=== PATIENT | female | born 2000 | race Two or more races ===

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

== ENCOUNTER → 2021-02-08 14:10 | Outpatient (CLI) | payer BC, SELFPAY ==
[2021-02-08 14:47] LABS: Amphetamine/Metha Screen,Urine Positive ng/ml (<1000)
[2021-02-08 14:48] LABS: Benzodiazepines Screen,Urine Negative ng/ml (<200)
[2021-02-08 14:49] LABS: Cannabinoid Screen,Urine Negative ng/ml (<50)
[2021-02-08 14:50] LABS: Cocaine Screen,Urine Negative ng/ml (<300); Methadone Screen,Urine Negative ng/ml (<300)
[2021-02-08 14:51] LABS: Opiate Screen,Urine Negative ng/ml (<300); Phencyclidine Screen,Urine Negative ng/ml (<25)
[2021-02-08 14:59] LABS: Barbiturates Screen,Urine Negative ng/ml (<200)
== END ==
PROVIDERS: Visit Provider Physician Assistant
DX: F90.9 Attention-deficit hyperactivity disorder, unspecified type (principal)
CPT/HCPCS: 80305

== ENCOUNTER → 2021-09-27 14:35 | Outpatient (CLI) | payer BC, SELFPAY ==
[2021-09-27 14:14] LABS: Barbiturates Screen,Urine Negative ng/ml (<200)
[2021-09-27 14:15] LABS: Benzodiazepines Screen,Urine Negative ng/ml (<200)
[2021-09-27 14:16] LABS: Amphetamine/Metha Screen,Urine Negative ng/ml (<1000)
[2021-09-27 14:23] LABS: Cannabinoid Screen,Urine Negative ng/ml (<50)
[2021-09-27 14:24] LABS: Cocaine Screen,Urine Negative ng/ml (<300)
[2021-09-27 14:25] LABS: Methadone Screen,Urine Negative ng/ml (<300); Opiate Screen,Urine Negative ng/ml (<300)
[2021-09-27 14:26] LABS: Phencyclidine Screen,Urine Negative ng/ml (<25)
== END ==
PROVIDERS: PCP Physician Assistant; Visit Provider Physician Assistant
DX: F90.9 Attention-deficit hyperactivity disorder, unspecified type (principal)
CPT/HCPCS: 80305

== ENCOUNTER → 2022-05-21 13:53 | Outpatient (CLI) | payer BC, SELFPAY ==
--- NOTE | 2022-05-21 14:09 | CT_ITS ---
FINAL REPORT CLINICAL HISTORY: Abdominal pain in back on right side, radiates to front of stomach FINDINGS: Axial CT images of the abdomen and pelvis were obtained without intravenous contrast. Coronal and sagittal reformatted images were also obtained.This study was performed with techniques to keep radiation doses as low as reasonably achievable (ALARA). Individualized dose reduction techniques using automated exposure control or adjustment of mA and/or kV according to the patient''s size were employed. Abdomen: The lung bases are clear. There is no evidence of renal stone or hydronephrosis. The right kidney is enlarged and heterogeneous with surrounding fat stranding. The liver, spleen and pancreas have an unremarkable, unenhanced appearance. No mass or adenopathy is seen. No inflammatory process is identified. Pelvis: Images of the pelvis reveal no evidence of ureteral dilation or ureteral stone. No mass or adenopathy is identified. There is a small amount of pelvic free fluid which is likely physiologic or reactive. The appendix is visualized and has an unremarkable appearance. IMPRESSION: Enlarged right kidney with surrounding fat stranding most worrisome for acute right pyelonephritis. Authenticated and ERN
== END ==
LOC: RAD 13:55
PROVIDERS: PCP Physician Assistant; Visit Provider Physician Assistant
DX: R10.31 Right lower quadrant pain (principal)
CPT/HCPCS: 74176

== ENCOUNTER → 2022-05-22 13:24 | Outpatient (CLI) | payer BC, SELFPAY | PROVIDERS: PCP Physician Assistant; Visit Provider Physician Assistant | DX: R10.31 Right lower quadrant pain (principal) | CPT/HCPCS: 87086 ==

== ENCOUNTER 2022-05-22 22:34 | Inpatient (IN) | payer BC, SELFPAY ==
[2022-05-22 22:43] VITALS: BP 120/63; PULSE 144; RESP 20; TEMP 36.8; O2SAT 98; BMI 20.8
[2022-05-22 22:56] LABS: Microscopic, Urine URINE MICROSCOPIC (MICROSCOPIC)
[2022-05-22 23:00] VITALS: BP 115/76; PULSE 121; O2SAT 97
[2022-05-22 23:06] LABS: Alanine Aminotransferase 40 U/L (12-78); Albumin Level 3.8 g/dl (3.5-5.0); Alkaline Phosphatase 261 U/L (38-126); Anion Gap 12.8 mEq/L (5-15); Aspartate Amino Transferase 43 U/L (14-36); Basophils # 0.1 K/mm3 (0-0.2); Basophils % 0.4 % (0.1-2.0); Bilirubin,Total 1.6 mg/dl (0.2-1.3); Blood Urea Nitrogen 25 mg/dl (7-17); Calcium 8.7 mg/dl (8.4-10.2); Carbon Dioxide 22 mmol/L (22.0-30.0); Chloride 97 mmol/L (98-107); Creatinine Clearance Estimated 27 mL/min (50-200); Eosinophils # 0.1 K/mm3 (0.0-0.4); Eosinophils % 0.7 % (0.1-12.0); Estimated Glomerular Filt Rate 28 ml/min (>60); GFR (African American) 34 ML/MIN (>60); Globulin 3.8 g/dL (1.3-3.2); Glucose 121 mg/dl (74-100); Hematocrit 36.4 % (37.0-47.0); Hemoglobin 12.2 g/dL (12.2-16.2); Lymphocytes # 0.5 K/mm3 (0.7-4.5); Mean Corpuscular HGB Conc 33.5 g/dL (31.8-35.4); Mean Corpuscular Hemoglobin 25.4 pg (27.0-31.2); Mean Platelet Volume 8.9 fl (7.4-10.4); Monocytes # 0.1 K/mm3 (0.1-1.0); Monocytes % 1.1 % (1.7-9.3); Neutrophils # 10.3 K/mm3 (1.8-7.8); Neutrophils % 93.7 % (37.0-80.0); Platelet Count 224 K/mm3 (142-424); Red Blood Count 4.79 M/mm3 (4.20-5.40); Red Cell Distribution Width 17.3 % (11.5-17.5); Sodium 129 mmol/L (136-145); Total Protein,Serum 7.6 g/dl (6.3-8.2); White Blood Count 10.9 K/mm3 (4.8-10.8)
[2022-05-22 23:08] LABS: Potassium 2.8 mmoL/L (3.5-5.1)
--- NOTE | 2022-05-22 23:08 | PC.NURSE ---
Critical potassium level of 2.8 called by lab. notified. Orders received.
[2022-05-22 23:10] LABS: MANUAL DIFFERENTIAL MANUAL DIFFERENTIAL (MANUAL DIFF)
[2022-05-22 23:11] LABS: C-Reactive Protein 298.7 mg/L (0-4)
[2022-05-22 23:15] LABS: Appearance,Urine CLEAR (Clear); Bilirubin,Urine Negative (Negative); Blood, Urine 3+ (Negative); Color,Urine YELLOW (Yellow); Glucose,Urine (UA) Negative (Negative); Ketones,Urine Negative (Negative); Leukocyte Esterase,Urine 1+ (Negative); Nitrate,Urine Negative (Negative); Protein,Urine 3+ (Negative); Specific Gravity, Urine 1.015 (1.005-1.030); Urobilinogen,Urine 0.2 EU/dl (0.2)
[2022-05-22 23:18] LABS: Urine Pregnancy, HCG Qual. Negative (Negative)
[2022-05-22 23:24] LABS: Coronavirus 19, PCR Not Detected (NotDetected); Influenza A, PCR Not Detected (NotDetected); Influenza B, PCR Not Detected (NotDetected)
[2022-05-22 23:30] VITALS: BP 122/73; PULSE 118; O2SAT 98
[2022-05-22 23:38] LABS: Bacteria,Urine 1+ /lpf
[2022-05-22 23:40] LABS: Lymphocytes % 9 % (10-50); Monocytes % 1 % (2-9); Neutrophils % 90 % (42-76); Platelet Estimate Normal; RBC Morphology Normal; Total Cells Counted 100
[2022-05-22 23:40] LABS: Lactic Acid 0.9 mmol/L (0.7-2.1)
[2022-05-22 23:41] LABS: Erythrocyte Sedimentation Rate 93 mm/hr (0-20)
[2022-05-23] VITALS (10 sets, daily range): BP systolic 96–127; BP diastolic 53–71; PULSE 58–116; RESP 16–21; TEMP 36.6–37.2; O2SAT 91–99; BMI 21.7; BMI 21.8
--- NOTE | 2022-05-23 00:27 | HMH.ITSTN ---
GFR below 30 & high creat. Spoke to RN, verbal to cancel CT scan.
--- NOTE | 2022-05-23 00:34 | PC.NURSE ---
ER MD at bedside at this time
--- NOTE | 2022-05-23 00:39 | CT_ITS ---
PROCEDURE INFORMATION: Exam: CT Abdomen And Pelvis Without Contrast Exam date and time: 05/23/2022 12:52 AM Age: 22 years old Clinical indication: Abdominal pain; Additional info: Abd pain TECHNIQUE: Imaging protocol: Computed tomography of the abdomen and pelvis without contrast. Radiation optimization: All CT scans at this facility use at least one of these dose optimization techniques: automated exposure control; mA and/or kV adjustment per patient size (includes targeted exams where dose is matched to clinical indication); or iterative reconstruction. REPORTING DATA: Count of CT and Cardiac NM exams in prior 12 months: This patient has received [address] and 0 known cardiac nuclear medicine studies in the 12 months prior to the current study. COMPARISON: CT ABDOMEN PELVIS WO CON 05/21/2022 2:29 PM FINDINGS: Lungs: Minimal subsegmental atelectasis at both lung bases. Small calcified granulomas again noted at the medial left lung base. Liver: Normal. No mass. Gallbladder and bile ducts: Normal. No calcified stones. No ductal dilation. Pancreas: Normal. No ductal dilation. Spleen: Normal. No splenomegaly. Adrenal glands: Normal. No mass. Kidneys and ureters: Persistent enlargement of the right kidney with trace perinephric stranding. No hydronephrosis. Left kidney appears unremarkable. Stomach and bowel: Unremarkable. No obstruction. No mucosal thickening. Appendix: Normal appendix. Intraperitoneal space: Trace free fluid. No free air. Vasculature: Unremarkable. No abdominal aortic aneurysm. Lymph nodes: Unremarkable. No enlarged lymph nodes. Urinary bladder: No bladder wall thickening or other bladder abnormality. Reproductive: Unremarkable as visualized. Bones/joints: No acute osseous abnormality. Soft tissues: Unremarkable. IMPRESSION: 1. Persistent enlargement of the right kidney with trace perinephric stranding. No hydronephrosis. Findings again raise concern for possible right pyelonephritis. 2. Left kidney appears unremarkable. 3. Trace free fluid. 4. No bladder wall thickening or other bladder abnormality. 5. Minimal subsegmental atelectasis at both lung bases.
--- NOTE | 2022-05-23 00:39 | HMH.EDABDPAI ---
Discharge Plan Disposition Patient Disposition: Admitted As Inpatient Chief Complaint: Abdominal Pain Prescriptions Prescriptions: No Action mometasone [Nasonex] 50 mcg/actuation spray,non-aerosol 2 spray INTRANASAL DAILY Rx Instructions: administer into each nostril Stahist AD 25-60 mg tablet 1 tab PO BID PRN (Reason: allergy symptoms) Qty: 180 0RF ondansetron 8 mg tablet,disintegrating 8 mg PO Q12H montelukast 10 mg tablet 10 mg PO HS cefdinir 300 mg capsule 300 mg PO BID Mydayis 25 mg capsule, ER triphasic 24 hr 25 mg PO DAILY Referrals Follow up/Referrals: Alma Davis PA [Primary Care Provider] - See instructions Clinical Impressions Clinical Impression: Pyelonephritis, Severe sepsis with acute organ dysfunction, Acute hypokalemia Discharge ED Provider: Oksana (ED)Rashid Abdominal Pain HPI General Chief Complaint: Abdominal Pain Stated Complaint: ABD pain Time Seen by Provider: 05/23/22 00:05 Mode of Arrival: Ambulatory Source of Information: Patient and Medical Record Limitations: No Limitations Description of Symptoms (Recalled from ER Triage Doc. by RN): Pt arrives via private vehicle with c/o severe lower back pain since Saturday. States that she saw her pcp yesterday and had a ct scan and was diagnosed with pyelonephritis and began cefdinir, is on day 2 of cefdinir. Patient states that the pain has become more severe and is not relieved by over the counter medication. Pt states that the pain is now worse in her abdomen but does tend to radiate from her lower back to abdomen. Denies any injury History of Present Illness HPI narrative: back pain since saturday and had dx of pyelo and on omnicef and now with progressive pain and dec po intake complaint: abdominal pain Onset (ago): day(s) Consistency: constant Location: suprapubic and R flank Severity: severe Quality: sharp Associated symptoms: denies other symptoms Related Data Home Medications Medication Instructions Recorded Confirmed mometasone 50 mcg/actuation nasal 2 spray intranasal DAILY allergies 09/29/20 05/22/22 spray (Nasonex) cefdinir 300 mg capsule 300 mg PO BID kidney infection 05/22/22 05/22/22 dextroamphetamine-amphetamine ER 25 mg PO DAILY adhd 05/22/22 05/22/22 25 mg capsule,3 bead,ext release 24hr (Mydayis) montelukast 10 mg tablet 10 mg PO HS allergies 05/22/22 05/22/22 ondansetron 8 mg disintegrating 8 mg PO Q12H Nausea & vomiting 05/22/22 05/22/22 tablet Previous Rx's Medication Instructions Recorded chlorcyclizine-pseudoephedrine 25 1 tab PO BID PRN allergy symptoms 11/24/20 mg-60 mg tablet (Stahist AD) #180 tabs Allergies Allergy/AdvReac Type Severity Reaction Status Date / Time Penicillins Allergy Verified 05/21/22 13:15 [facility] Disclaimer: The information contained in this section may have been updated after the patient was seen, as this information can be updated by other users. Medical History (Updated 05/23/22 @ 01:42 by Rashid Gandhi (ED)MD) Allergic rhinitis Anxiety Attention deficit hyperactivity disorder (ADHD) Pain, abdominal, RLQ Right flank pain Social History Smoking Status: Never smoker alcohol intake: never substance use type: denies use current occupational status: other Travel in the last 8 weeks: None household members: family housing: house ROS Obtained: Yes All systems reviewed & no additional complaints except as documented Physical Exam General General appearance: alert Head Head exam: normocephalic Eye Eye exam: Present PERRL and EOMI; Absent scleral icterus ENT ENT exam: Present mucous membranes moist Neck Neck exam: Present trachea midline; Absent meningismus Respiratory Respiratory exam: Absent respiratory distress Cardiovascular Cardiovascular exam: Present regular rate Abdominal Exam Abdominal exam: Present soft and
--- NOTE | 2022-05-23 00:49 | PC.NURSE ---
patient gone to CT at this time.
--- NOTE | 2022-05-23 00:54 | PC.NURSE ---
patient back in room at this time.
--- NOTE | 2022-05-23 02:04 | EXP.HP ---
History of Present Illness *Admission Date: 05/23/22 *Reason for visit:: Back Pain, Nausea, Chills *History of present illness: Ms. Colin is a 22-year-old female with no significant past medical history who presents to [facility] with mother due to a 3-day history of back pain associated with chills, nausea and the inability to tolerate oral intake. Mother reports that she was seen by her PCP and diagnosed with Pyelonephritis by CT scan 2-days prior to presentation. At that time she was given a dose of Rocephin and given Cefdinir orally. Despite these interventions the mother reports that the patient had worsening back pain and the inability to tolerate oral intake so she brought her into the ER for further evaluation. In the ER, CT of the abdomen and pelvis showed persistent enlargement of the right kidney with trace perinephretic stranding with no hydronephrosis. On CMP Na was 129, K was 2.8, and creatinine was 2.20. Urine HCG was negative. On presentation the patient had a HR of 138, RR of 21. The patient will be admitted with initial impression: Sepsis, Pyelonephritis, Hypokalemia, SEAN and Hyponatremia. She had cultures drawn in the ER and received a Fluid bolus and iv antibiotics. The plan of care was discussed with the patient and mother at bedside. Both verbalized understanding and agreement with the plan of care. [facility] Disclaimer: The information contained in this section may have been updated after the patient was seen, as this information can be updated by other users. Medical History Allergic rhinitis Anxiety Attention deficit hyperactivity disorder (ADHD) Pain, abdominal, RLQ Right flank pain Family History (Updated 05/23/22 @ 02:34 by Jess Hernández RN) No significant family history Social History (Updated 05/23/22 @ 02:35 by Jess Hernández RN) Smoking Status: Never smoker alcohol intake: never substance use type: denies use current occupational status: student and other Travel in the last 8 weeks: None household members: family housing: house Review of Systems Review of Systems Review of systems:: pertinent systems reviewed and negative unless documented below Constitutional Constitutional: Reports anorexia, Reports body ache(s) and Reports chills Eyes Eyes: Reports system reviewed and no additional complaints, except as documented ENT Ears, Nose, Mouth, and Throat: Reports system reviewed and no additional complaints, except as documented *Cardiovascular Cardiovascular: Reports system reviewed and no additional complaints, except as documented *Respiratory Respiratory: Reports system reviewed and no additional complaints, except as documented *Gastrointestinal Gastrointestinal: Reports nausea *Genitourinary Genitourinary: Reports hematuria, Reports pelvic pain and Reports urinary hesitancy *Musculoskeletal Musculoskeletal: Reports back pain Integumentary/Breasts Skin/Breast: Reports system reviewed and no additional complaints, except as documented *Neurologic Neurologic: Reports system reviewed and no additional complaints, except as documented Psychiatric Psychiatric: Reports system reviewed and no additional complaints, except as documented Endocrine Endocrine: Reports system reviewed and no additional complaints, except as documented Hematologic/Lymphatic Hematologic/Lymphatic: Reports system reviewed and no additional complaints, except as documented Allergic/Immunologic Allergic/Immunologic: Reports system reviewed and no additional complaints, except as documented Meds Home Medications and Allergies Home Medications Medication Instructions Recorded Confirmed Type mometasone 50 mcg/actuation nasal 2 spray intranasal DAILY allergies 09/29/20 05/22/22 History spray (Nasonex) chlorcyclizine-pseudoephedrine 25 1 tab PO BID PRN allergy symptoms 11/24/20 05/22/22 Rx mg-60 mg tablet (Sta
[2022-05-23 02:26] LABS: Magnesium 3.3 mg/dl (1.6-2.3)
--- NOTE | 2022-05-23 04:47 | PC.NURSE ---
patient is a&ox4. stable on room air. has no complaints of pain. receiving iv fluids/potassium. mother at bedside.
--- NOTE | 2022-05-23 06:32 | EXP.SEPSISRE ---
[facility] Tissue Perfusion Eval Sepsis Re-Evaluation Performed: Yes Date Performed: 05/23/22 Time Performed: 06:00
[2022-05-23 07:02] LABS: Basophils % 0.1 % (0.1-2.0); Eosinophils % 0.5 % (0.1-12.0); Hematocrit 32.4 % (37.0-47.0); Lymphocytes # 0.7 K/mm3 (0.7-4.5); Lymphocytes % 10.8 % (10-50); Mean Corpuscular Hemoglobin 25.6 pg (27.0-31.2); Mean Corpuscular Volume 79.9 fl (81-99); Mean Platelet Volume 8.9 fl (7.4-10.4); Monocytes # 0.1 K/mm3 (0.1-1.0); Monocytes % 1.7 % (1.7-9.3); Neutrophils # 5.3 K/mm3 (1.8-7.8); Neutrophils % 86.9 % (37.0-80.0); Platelet Count 154 K/mm3 (142-424); Red Blood Count 4.05 M/mm3 (4.20-5.40); Red Cell Distribution Width 17.6 % (11.5-17.5); White Blood Count 6.1 K/mm3 (4.8-10.8)
[2022-05-23 07:05] LABS: MANUAL DIFFERENTIAL MANUAL DIFFERENTIAL (MANUAL DIFF)
[2022-05-23 07:08] LABS: Hemoglobin 10.4 g/dL (12.2-16.2)
[2022-05-23 07:12] LABS: Alanine Aminotransferase 26 U/L (12-78); Albumin Level 2.5 g/dl (3.5-5.0); Albumin/Globulin Ratio 0.9 (1.1-1.8); Alkaline Phosphatase 183 U/L (38-126); Anion Gap 7.5 mEq/L (5-15); Aspartate Amino Transferase 30 U/L (14-36); Bilirubin,Total 1.1 mg/dl (0.2-1.3); Blood Urea Nitrogen 20 mg/dl (7-17); Calcium 7.5 mg/dl (8.4-10.2); Carbon Dioxide 19 mmol/L (22.0-30.0); Chloride 107 mmol/L (98-107); Creatinine Clearance Estimated 34 mL/min (50-200); Estimated Glomerular Filt Rate 36 ml/min (>60); GFR (African American) 43 ML/MIN (>60); Globulin 2.9 g/dL (1.3-3.2); Glucose 116 mg/dl (74-100); Potassium 3.5 mmoL/L (3.5-5.1); Sodium 130 mmol/L (136-145); Total Protein,Serum 5.4 g/dl (6.3-8.2)
[2022-05-23 07:15] LABS: Lymphocytes % 18 % (10-50); Monocytes % 2 % (2-9); Neutrophils % 80 % (42-76); Platelet Estimate Normal; RBC Morphology Normal; Total Cells Counted 100
--- NOTE | 2022-05-23 07:20 | HMH.PHAINT1 ---
Pharmacy Intervention Comments: Medication reconciliation completed using external fill history
--- NOTE | 2022-05-23 09:31 | PC.NURSE ---
noted IV pump beeping, upon assessment patient noted to be crying and moaning out in pain. family at bedside asking if she could have anything this morning for pain. noted no pain meds ordered at that time and notified md who placed orders for dilaudid 0.5mg to be given every two hours as needed.
--- NOTE | 2022-05-23 12:51 | PC.NURSE ---
Addendum entered by Daniella Dc RN 05/23/22 12:57: pt mother brought in pts mydayis, sent to pharm Original Note: could hear pt coughing and gagging from the [address], checked on pt. pt sitting on bed tearful stating she feels like she ran a marathon after she went to the br. rt lung clear, left lung sounded wet. notified magi of the situation. per magi stop ivmf. pt stated after she calmed down she was going to eat. pt did not c/o n/v/d or pain at that time. mother stated she gave the pt her otc allergy medicine singulair, around 1230.
--- NOTE | 2022-05-23 15:58 | PC.NURSE ---
courtesy tech louie: pt is lying in bed. hiral was giving per request. call light is within reach. no further requests at this time.
--- NOTE | 2022-05-23 16:29 | XR_ITS ---
PROCEDURE INFORMATION: Exam: XR Chest Exam date and time: 05/23/2022 4:42 PM Age: 22 years old Clinical indication: Patient HX: Increased o2 demand. Patient is on 2 liters of nasal cannula oxygen. Inpatient. ; Additional info: Increase o2 demand TECHNIQUE: Imaging protocol: Radiologic exam of the chest. Views: 2 views. COMPARISON: CT ABDOMEN PELVIS WO CON 05/23/2022 12:52 AM FINDINGS: Lungs: Lung volumes are a mildly. Nonspecific mild bibasilar opacities are consistent with atelectasis, edema, or pneumonia. Calcified granuloma in the right mid lung is present. No focal areas of consolidation. Pleural spaces: Minor thickening of the interlobar fissures may reflect trace pleural fluid. Negative for pneumothorax. Heart/Mediastinum: Cardiac silhouette and pulmonary vasculature are within range of normal. Bones/joints: There is no evidence of acute fracture. There is a minor convex right thoracic curvature. IMPRESSION: 1. Nonspecific bibasilar opacities most consistent with atelectasis, edema, or pneumonia.
--- NOTE | 2022-05-23 17:20 | PC.NURSE ---
tech reported pts o2 level was low, rechecked vitals, o2 sat 86% on RA. PT PLACED ON 2L NC WITH SATS AROUND 95%. DR DOUGLAS NOTIFIED ABOUT INCREASED O2 DEMAND, CXR ORDER.
[2022-05-23 18:20] LABS: Blood Urea Nitrogen 16 mg/dl (7-17); Calcium 8.1 mg/dl (8.4-10.2); Carbon Dioxide 18 mmol/L (22.0-30.0); Chloride 106 mmol/L (98-107); Creatinine Clearance Estimated 36 mL/min (50-200); Estimated Glomerular Filt Rate 38 ml/min (>60); GFR (African American) 46 ML/MIN (>60); Glucose 137 mg/dl (74-100); Sodium 131 mmol/L (136-145)
[2022-05-24] VITALS (7 sets, daily range): BP systolic 122–135; BP diastolic 69–78; PULSE 114–141; RESP 16; TEMP 37.1–39.6; O2SAT 91–100; BMI 25.4; BMI 22.2
--- NOTE | 2022-05-24 00:40 | PC.NURSE ---
COURTESY ROUND - PATIENT ASLEEP AT THIS TIME . TRASH EMPTIED.
--- NOTE | 2022-05-24 04:29 | PC.NURSE ---
COURTESY ROUND- PATIENT SLEEPING WITH DAD AT BEDSIDE . TRASH EMPTIED AND ICE WATER REFILLED.
--- NOTE | 2022-05-24 06:29 | PC.NURSE ---
PT HAS RESTED INTERMITTENTLY THIS SHIFT. HAS C/O PAIN X4 THIS SHIFT AND WAS MEDICATED WITH PRN MEDS WITH ADEQUATE RELIEF. PT DID RUN A FEVER OF 103.3 THIS SHIFT TREATED WITH PRN TYLENOL. TEMP NOW 99.1. OTHER VITALS HAVE BEEN STABLE. FATHER AT BEDSIDE.
[2022-05-24 06:44] LABS: Basophils % 0.5 % (0.1-2.0); Eosinophils % 0.4 % (0.1-12.0); Hematocrit 31.8 % (37.0-47.0); Lymphocytes # 0.9 K/mm3 (0.7-4.5); Lymphocytes % 12.4 % (10-50); Mean Corpuscular HGB Conc 31.4 g/dL (31.8-35.4); Mean Corpuscular Hemoglobin 24.7 pg (27.0-31.2); Mean Corpuscular Volume 78.6 fl (81-99); Mean Platelet Volume 8.1 fl (7.4-10.4); Monocytes # 0.3 K/mm3 (0.1-1.0); Monocytes % 3.5 % (1.7-9.3); Neutrophils # 5.8 K/mm3 (1.8-7.8); Neutrophils % 83.1 % (37.0-80.0); Platelet Count 161 K/mm3 (142-424); Red Blood Count 4.05 M/mm3 (4.20-5.40); Red Cell Distribution Width 17.9 % (11.5-17.5)
[2022-05-24 06:45] LABS: Alanine Aminotransferase 21 U/L (12-78); Albumin Level 2.5 g/dl (3.5-5.0); Albumin/Globulin Ratio 0.9 (1.1-1.8); Alkaline Phosphatase 184 U/L (38-126); Aspartate Amino Transferase 24 U/L (14-36); Blood Urea Nitrogen 14 mg/dl (7-17); Calcium 7.6 mg/dl (8.4-10.2); Carbon Dioxide 17 mmol/L (22.0-30.0); Creatinine Clearance Estimated 40 mL/min (50-200); Estimated Glomerular Filt Rate 36 ml/min (>60); GFR (African American) 43 ML/MIN (>60); Globulin 2.8 g/dL (1.3-3.2); Glucose 90 mg/dl (74-100); Magnesium 1.8 mg/dl (1.6-2.3); Total Protein,Serum 5.3 g/dl (6.3-8.2)
[2022-05-24 06:46] LABS: Anion Gap 9.2 mEq/L (5-15); Chloride 109 mmol/L (98-107); Potassium 3.2 mmoL/L (3.5-5.1); Sodium 132 mmol/L (136-145)
--- NOTE | 2022-05-24 07:44 | EXP.PHA.CONS ---
Pharmacy Consult Date: 05/24/22 Time: 07:44 Referring provider: DR. DOUGLAS Reason for Consult:: VANCOMYCIN DOSING Allergies Allergy/AdvReac Type Severity Reaction Status Date / Time Penicillins Allergy Verified 05/21/22 13:15 Home Medications Medication Instructions Recorded Confirmed Type mometasone 50 mcg/actuation nasal 2 spray intranasal DAILY allergies 09/29/20 05/22/22 History spray (Nasonex) chlorcyclizine-pseudoephedrine 25 1 tab PO BID PRN allergy symptoms 11/24/20 05/22/22 Rx mg-60 mg tablet (Stahist AD) #180 tabs dextroamphetamine-amphetamine ER 25 mg PO DAILY adhd 05/22/22 05/22/22 History 25 mg capsule,3 bead,ext release 24hr (Mydayis) montelukast 10 mg tablet 10 mg PO HS allergies 05/22/22 05/22/22 History New Prescriptions to Start Prescriptions: Height: 1.42 m Weight: 51.211 kg Laboratory Results:: Laboratory Results - last 24 hr 05/23/22 18:05: Sodium 131 L, Potassium 3.0 L, Chloride 106, Carbon Dioxide 18 L, Anion Gap 10.0, BUN 16, Creatinine 1.70 H, Estimated Creat Clear 36, Estimated GFR 38 L, Est GFR ( Amer) 46 L, Glucose 137 H, Calcium 8.1 L 05/24/22 06:10: WBC 7.0, RBC 4.05 L, Hgb 10.0 L, Hct 31.8 L, MCV 78.6 L, MCH 24.7 L, MCHC 31.4 L, RDW 17.9 H, Plt Count 161, MPV 8.1, Neut % (Auto) 83.1 H, Lymph % (Auto) 12.4, [place] % (Auto) 3.5, Eos % (Auto) 0.4, Baso % (Auto) 0.5, Neut # (Auto) 5.8, Lymph # (Auto) 0.9, [place] # (Auto) 0.3, Eos # (Auto) 0.0, Baso # (Auto) 0.0 05/24/22 06:10: Sodium 132 L, Potassium 3.2 L, Chloride 109 H, Carbon Dioxide 17 L, Anion Gap 9.2, BUN 14, Creatinine 1.80 H, Estimated Creat Clear 40, Estimated GFR 36 L, Est GFR ( Amer) 43 L, Glucose 90 D, Calcium 7.6 L, Magnesium 1.8 D, Total Bilirubin 1.0, AST 24, ALT 21, Alkaline Phosphatase 184 H, Total Protein 5.3 L, Albumin 2.5 L, Globulin 2.8, Albumin/Globulin Ratio 0.9 L Medical History: Medical History (Updated 05/23/22 @ 02:14 by Reed Guevara DNP) Allergic rhinitis Anxiety Attention deficit hyperactivity disorder (ADHD) Pain, abdominal, RLQ Right flank pain Assessment and Plan Assessment and plan all Dx Assessment and Plan for all problems:: Pharmacokinetic dosing service Objective: Patient: Floor: Age: 22 yo Serum creatinine: 1.80 mg/dL Height: 55.9 Inches Weight (kg): 51.2 Assessment: IBW (kg): 42.39 Dosing wt(kg): 51.2 Estimated Creatinine clearance (ml/min): 33.1 CRCL method: Cockcroft and Gault using ibw(default). Drug selected: Vancomycin Loading dose (mg): Vd (liters): 38.4 (factor used: 0.75 L/kg) Fili (hr-1): 0.032 Half life (hrs): 21.66 CLvanco=?? 1.229 L/hr Recommended dose: 1000 mg Interval: 36 hrs Infusion time (hrs): 2.0 Predicted peak (mcg/mL): 36.9 Predicted trough (mcg/mL): 12.43 Total body weight is being used for vancomycin dosing. Recommendations: Give Vancomycin 1000 mg q 36 hrs with an expected Cpeak of 36.9 mcg/ml and an expected Ctrough of 12.43 mcg/ml AUC 0-24 /EN Data: EN 0.5 mcg/mL:?? AUC/EN:? 1084.9 EN 1.0 mcg/mL:?? AUC/EN:? 542.4 --------- EN 1.5 mcg/mL:?? AUC/EN:? 361.6 EN 2.0 mcg/mL:?? AUC/EN:? 271.2 Thank you for the consult, will continue to follow. -NOEL HERNANDEZ, TYESHAD
--- NOTE | 2022-05-24 12:52 | EXP.ACUTE.PN ---
Subjective *Date: 05/24/22 *Time: 12:52 Interval history: Patient had event overnight with spiking fever. Antibiotics broadened to vancomycin and meropenem given fever while on appropriate empiric therapy for E. coli, concern for resistance. Pain also more difficult to control, necessitating IV Dilaudid every 2-3 hours overnight. Afebrile this morning on rounds. He denies nausea or vomiting. No chest pain. Continues to have significant dyspnea with exertion, dry nonproductive cough when ambulates. Requiring 1 to 2 L nasal cannula oxygen. Alert and oriented x3 Medical Exam Vital signs and Labs for Last 24 Hours: Vital Signs Temp Pulse Pulse Resp BP Pulse Ox 05/24/22 08:00 114 H 91 L 05/24/22 07:36 98.8 F 119 H 16 127/77 91 L 05/24/22 04:00 103.3 F H 141 H 16 135/78 91 L 05/23/22 20:00 98.9 F 58 L 18 127/69 96 05/23/22 16:00 99.0 F 106 H 20 126/69 92 L Intake and Output 05/23/22 05/24/22 05/24/22 23:59 07:59 15:59 Intake Total 480 / 1420 220 / 220 Output Total 0 / 0 0 / 0 Balance 480 / 870 220 / 220 0 / 220 Intake: Intake, Oral Amount 480 / 1320 120 / 120 Intake, Total IV Amount 100 / 100 Cefepime HCl 2 gm In 0.9 % 100 / 100 Sodium Chloride 100 ml @ 200 mls/hr IV Q12H [facility] Rx#:[id number] Output: Output, Urine Amount 0 / 0 0 / 0 Other: Number of Unmeasured Voids 1 1 Weight 44.962 kg Patient Weight 05/24/22 23:59 Weight 44.962 kg Laboratory Results - last 24 hr 05/23/22 18:05: Sodium 131 L, Potassium 3.0 L, Chloride 106, Carbon Dioxide 18 L, Anion Gap 10.0, BUN 16, Creatinine 1.70 H, Estimated Creat Clear 36, Estimated GFR 38 L, Est GFR ( Amer) 46 L, Glucose 137 H, Calcium 8.1 L 05/24/22 06:10: WBC 7.0, RBC 4.05 L, Hgb 10.0 L, Hct 31.8 L, MCV 78.6 L, MCH 24.7 L, MCHC 31.4 L, RDW 17.9 H, Plt Count 161, MPV 8.1, Neut % (Auto) 83.1 H, Lymph % (Auto) 12.4, [place] % (Auto) 3.5, Eos % (Auto) 0.4, Baso % (Auto) 0.5, Neut # (Auto) 5.8, Lymph # (Auto) 0.9, [place] # (Auto) 0.3, Eos # (Auto) 0.0, Baso # (Auto) 0.0 05/24/22 06:10: Sodium 132 L, Potassium 3.2 L, Chloride 109 H, Carbon Dioxide 17 L, Anion Gap 9.2, BUN 14, Creatinine 1.80 H, Estimated Creat Clear 40, Estimated GFR 36 L, Est GFR ( Amer) 43 L, Glucose 90 D, Calcium 7.6 L, Magnesium 1.8 D, Total Bilirubin 1.0, AST 24, ALT 21, Alkaline Phosphatase 184 H, Total Protein 5.3 L, Albumin 2.5 L, Globulin 2.8, Albumin/Globulin Ratio 0.9 L I & O for Labs for Last 24 Hours: Intake & Output 05/21/22 05/22/22 05/23/22 05/24/22 23:59 23:59 23:59 23:59 Intake Total 1320 / 1420 220 / 220 Output Total 550 / 550 0 / 0 Balance 770 / 870 220 / 220 Weight 42.184 kg 44.027 kg 44.962 kg Microbiology Reports for the Last 24 Hours: Microbiology 05/23/22 06:30 Urine,Clean Catch Urine Culture - Preliminary NO GROWTH AFTER 24 HOURS 05/23/22 01:30 Blood Blood Culture - Preliminary Gram Negative Rods Constitutional: Present mild distress and average body habitus Head: Present atraumatic and normocephalic ENT: Present normal exam Neck: Present normal inspection Respiratory: Present crackles (faint in posterior lung iyer bases.) and normal respiratory effort; Absent accessory muscle use, rhonchi or wheezes Cardiac: Present Reg Rate and Rhythm GI: Present soft, tenderness (non focal, no guarding or rebound) and normal bowel sounds; Absent distention Comments:: positive CVA tenderness on Right Extremities: Present normal inspection and full ROM Skin: Present intact; Absent erythema Neuro: Present Cranial Nerve 2-12 Intact, Grossly Intact, alert, awake, oriented x 3 and moves all extremities Assessment and Plan *Assessment and plan (1) Sepsis: Status: Acute Category: Medical Code(s): A41.9 - Sepsis, unspecified organism (2) E coli bacteremia: Status: Acute Category: Medical Code(
--- NOTE | 2022-05-24 14:43 | PC.NURSE ---
pt ambulating in hallway at this time
--- NOTE | 2022-05-24 17:26 | PC.NURSE ---
pt rested most of first part of shift, required 2L NC, afternoon pt got up and ambulated in hallway, has been sitting straight up in bed, room air sat checked before supper, 98%, has complained of pain 5 times and was treated per MAR, appetite better with supper, ambulating to BR, remains tachy, parents remain at bedside
[2022-05-24 18:52] LABS: Chloride 103 mmol/L (98-107); Potassium 3.4 mmoL/L (3.5-5.1); Sodium 132 mmol/L (136-145)
[2022-05-24 18:55] LABS: Anion Gap 10.4 mEq/L (5-15); Blood Urea Nitrogen 13 mg/dl (7-17); Carbon Dioxide 22 mmol/L (22.0-30.0); Creatinine Clearance Estimated 42 mL/min (50-200); Estimated Glomerular Filt Rate 44 ml/min (>60); GFR (African American) 53 ML/MIN (>60)
[2022-05-24 18:56] LABS: Calcium 7.7 mg/dl (8.4-10.2); Glucose 115 mg/dl (74-100)
[2022-05-25] VITALS (8 sets, daily range): BP systolic 114–135; BP diastolic 79–84; PULSE 107–156; RESP 17–22; TEMP 37.1–38.1; O2SAT 68–100; BMI 22.6
--- NOTE | 2022-05-25 01:19 | PC.NURSE ---
PATIENT REPORTS GOOD RESULTS WITH MIRALAX. DENIES PAIN AT THIS TIME. LOW GRADE TEMP 99.0 FAMILY MEMBER AT BEDSIDE.
--- NOTE | 2022-05-25 02:38 | PC.NURSE ---
PATIENT REPORTS BACK PAIN 07/25 AT 0145 AND WAS MEDICATED WITH PERCOCET5/325MG PO. AT 0235 PATIENT WAS MOANING AND C/O PAIN NOW 09/24 AND RECEIVED DILAUDID 0.5MG IVP.
--- NOTE | 2022-05-25 04:19 | PC.NURSE ---
PATIENT 'S BP 133/81 HR 156 02 SAT 68% ROOM AIR, 18 RESPS, TEMP 100.6 ORAL. SKIN WARM/DRY. DENIES SOA. PLACED ON 02 ATR 3LNC AND SAT INCREASED TO 90%. HR DOWN 137. ROMA Fitzgerald DNP NOTIFIED AT HERE TO SEE PATIENT.
--- NOTE | 2022-05-25 04:25 | XR_ITS ---
PROCEDURE INFORMATION: Exam: XR Chest Exam date and time: 05/25/2022 4:27 AM Age: 22 years old Clinical indication: Condition or disease; Lung condition and disease; Hypoxia TECHNIQUE: Imaging protocol: Radiologic exam of the chest. Views: 1 view. COMPARISON: CR XR CHEST 2V 05/23/2022 4:42 PM FINDINGS: Lungs: Mild underinflation. Mild patchy bibasilar opacities. Probable calcified granuloma within RIGHT mid lung. Pleural spaces: Cannot exclude small pleural effusions. No pneumothorax. Heart/Mediastinum: No cardiomegaly. Bones/joints: No displaced fracture. Soft tissues: Unremarkable. IMPRESSION: Bibasilar atelectasis and/or pneumonia. Radiographic follow-up is recommended.
--- NOTE | 2022-05-25 04:29 | EXP.EVENT.NO ---
Received call from ULICES Murillo that patient's oxygen had dropped to the 60's on room air with ambulation to the rest room, and patient's temperature was 100.6, patient Tachycardic with HR 137 at approximately 4:45 am. Went to bedside to assess patient, patient was in the low 90's (92-93 on 3L nasal cannula) reports feeling short of air. Sitting upright in bed with oxygen in place, diminished in bases of lungs, no use of accessory muscles of chest noted, no signs of distress noted. Labs ordered: CBC, CMP, ABG, D-dimer, Cxray.
--- NOTE | 2022-05-25 04:41 | PC.NURSE ---
RN IS AWARE OF O2 AND HEART RATE.
--- NOTE | 2022-05-25 05:05 | PC.NURSE ---
02 SAT 93% ON 3LNC, HR 128. RESTING QUIETLY. NO C/O SOA OR PAIN.
--- NOTE | 2022-05-25 05:42 | PC.NURSE ---
PATIENT RESTING QUIETLY IN BED. HOB UP 40 DEGREES. 02 3LMC IN USE. 02 SAT 96% WITH 02 ON. HR 135.
[2022-05-25 06:18] LABS: ABG Base Excess -6.6 mmol/L (-2.4-2.3); ABG HCO3 18.4 mmhg (22.0-26.0); ABG Oxygen Saturation 95 % (90-100); ABG PCO2 31.1 mmhg (35.0-45.0); ABG PH 7.39 mmol/L (7.35-7.45); ABG PO2 72.5 mmhg (80-100); ABG TCO2 19.3 mmhg (23-27)
[2022-05-25 06:23] LABS: Allen's Test ACCEPTABLE; Oxygen 2LPM %; Source L RADIAL
[2022-05-25 06:26] LABS: Basophils % 0.4 % (0.1-2.0); Eosinophils # 0.1 K/mm3 (0.0-0.4); Eosinophils % 1.5 % (0.1-12.0); Hematocrit 32.8 % (37.0-47.0); Hemoglobin 10.5 g/dL (12.2-16.2); Lymphocytes # 1.9 K/mm3 (0.7-4.5); Lymphocytes % 21.6 % (10-50); Mean Corpuscular Hemoglobin 24.8 pg (27.0-31.2); Mean Corpuscular Volume 77.6 fl (81-99); Mean Platelet Volume 8.2 fl (7.4-10.4); Monocytes # 0.3 K/mm3 (0.1-1.0); Monocytes % 3.7 % (1.7-9.3); Neutrophils # 6.2 K/mm3 (1.8-7.8); Neutrophils % 72.7 % (37.0-80.0); Platelet Count 187 K/mm3 (142-424); Red Blood Count 4.23 M/mm3 (4.20-5.40); Red Cell Distribution Width 18.7 % (11.5-17.5); White Blood Count 8.5 K/mm3 (4.8-10.8)
[2022-05-25 06:31] LABS: D-Dimer 3.86 ug/mL (0.0-0.5)
[2022-05-25 06:55] LABS: Chloride 106 mmol/L (98-107)
[2022-05-25 06:56] LABS: Potassium 3.3 mmoL/L (3.5-5.1); Sodium 132 mmol/L (136-145)
[2022-05-25 06:58] LABS: Alanine Aminotransferase 21 U/L (12-78); Alkaline Phosphatase 325 U/L (38-126); Aspartate Amino Transferase 32 U/L (14-36); Blood Urea Nitrogen 14 mg/dl (7-17); Creatinine Clearance Estimated 43 mL/min (50-200); Estimated Glomerular Filt Rate 44 ml/min (>60); GFR (African American) 53 ML/MIN (>60)
[2022-05-25 06:59] LABS: Albumin Level 2.6 g/dl (3.5-5.0); Albumin/Globulin Ratio 0.8 (1.1-1.8); Anion Gap 12.3 mEq/L (5-15); Calcium 7.7 mg/dl (8.4-10.2); Carbon Dioxide 17 mmol/L (22.0-30.0); Globulin 3.2 g/dL (1.3-3.2); Glucose 94 mg/dl (74-100); Total Protein,Serum 5.8 g/dl (6.3-8.2)
[2022-05-25 07:00] LABS: Magnesium 1.8 mg/dl (1.6-2.3)
[2022-05-25 07:13] LABS: Iron 12 ug/dL (37-170)
[2022-05-25 07:22] LABS: Total Iron Binding Capacity 267 ug/dL (265-497)
--- NOTE | 2022-05-25 07:22 | CT_ITS ---
FINAL REPORT TECHNIQUE: Postcontrast axial images of the chest were performed in a CTA protocol. This study was performed with techniques to keep radiation doses as low as reasonably achievable, (ALARA). Individualized dose reduction technique using automated exposure control or adjustment of mA and/or kV according to the patient's size were employed. CLINICAL HISTORY: increased shortness of breath, concern for PE, fever FINDINGS: The heart is normal in size. No adenopathy is identified. No pericardial effusion is identified. The thoracic aorta is normal in caliber with no focal aneurysm or dissection identified. There is no filling defect to suggest pulmonary embolism. There are bilateral lower lobe consolidations, favor atelectasis over pneumonia. There are small pleural effusions. IMPRESSION: No evidence for PE on this exam. Bilateral lower lobe consolidations and small pleural effusions, favor atelectasis over pneumonia. Reviewed, Interpreted and Dictated by David Briggs III, MD Transcribed by Vannessa Rice Authenticated and [facility]
--- NOTE | 2022-05-25 07:22 | CT_ITS ---
FINAL REPORT TECHNIQUE: Axial imaging of the abdomen was obtained after the intravenous administration of contrast. This study was performed with techniques to keep radiation doses as low as reasonably achievable (ALARA). Individualized dose reduction techniques using automated exposure control or adjustment of mA and/or kV according to the patient's size were employed. CLINICAL HISTORY: re-eval RT pyelo for possible abscess? FINDINGS: The liver has an unremarkable appearance, without evidence of mass. There is mild gallbladder wall thickening. There is no evidence of biliary ductal dilatation. The pancreas appears normal. The spleen size is within normal limits. Again seen is significant enlargement and heterogeneity of the right kidney consistent with acute pyelonephritis. Now seen are 3, small, low-attenuation areas in the inferior pole of the right kidney measuring 13, 11 and 9 mm worrisome for small abscesses. There is no hydronephrosis. There is no evidence of adenopathy. IMPRESSION: Persistent acute right pyelonephritis with findings worrisome for small abscesses. Reviewed, Interpreted and Dictated by David Briggs III, MD Transcribed by Vannessa Rice Authenticated and [facility]
--- NOTE | 2022-05-25 08:00 | PC.NURSE ---
tech note; notified nurse of high heart rate for 0800 vital signs.
[2022-05-25 08:17] LABS: C-Reactive Protein 208.2 mg/L (0-4)
[2022-05-25 08:29] LABS: Procalcitonin 7.57 ng/mL (0.0-2.0)
--- NOTE | 2022-05-25 13:39 | EXP.ACUTE.PN ---
Subjective *Date: 05/25/22 *Time: 15:13 Interval history: Patient noted to have an event last night with dyspnea and anxiety after getting up to go to the bathroom. Became tachypneic and dropped her oxygen saturations briefly to reportedly 60. They improved with putting her back on oxygen. She had been off of oxygen at that time for at least 12 hours. Additionally had fever last night to 100.6. No nausea or vomiting. Tolerating p.o. intake. Denies any chest pain. Still having prominent right flank pain in her back. Alert and oriented x3. Appropriate on exam Medical Exam Vital signs and Labs for Last 24 Hours: Vital Signs Temp Pulse Resp BP Pulse Ox 05/25/22 12:42 110 H 22 97 05/25/22 08:00 137 H 22 95 05/25/22 07:59 99.5 F 125 H 20 135/83 97 05/25/22 04:41 137 H 92 L 05/25/22 04:00 100.6 F H 156 H 18 133/81 68 L 05/24/22 20:00 99.2 F 122 H 16 134/69 99 05/24/22 20:07 100 05/24/22 17:25 98 05/24/22 15:15 99.1 F 123 H 16 122/73 100 Intake and Output 05/24/22 05/25/22 05/25/22 23:59 07:59 15:59 Intake Total 120 / 1240 480 / 600 120 / 600 Output Total 0 / 0 1 / 1 Balance 120 / 1240 479 / 599 120 / 599 Intake: Intake, Oral Amount 120 / 1140 480 / 600 120 / 600 Output: Output, Urine Amount 0 / 0 1 / 1 Other: Number of Unmeasured Voids 1 Number of Bowel Movements 1 Weight 45.586 kg Patient Weight 05/25/22 23:59 Weight 45.586 kg Laboratory Results - last 24 hr 05/24/22 18:30: Sodium 132 L, Potassium 3.4 L, Chloride 103, Carbon Dioxide 22, Anion Gap 10.4, BUN 13, Creatinine 1.50 H, Estimated Creat Clear 42, Estimated GFR 44 L, Est GFR ( Amer) 53 L D, Glucose 115 H D, Calcium 7.7 L 05/25/22 04:25: Specimen Source L radial, O2 % 2lpm, ABG pH 7.39, ABG pCO2 31.1 L, ABG pO2 72.5 L, ABG HCO3 18.4 L, ABG Total CO2 19.3 L, ABG O2 Saturation 95, ABG Base Excess -6.6 L, Jake Test Acceptable 05/25/22 05:45: WBC 8.5, RBC 4.23, Hgb 10.5 L, Hct 32.8 L, MCV 77.6 L, MCH 24.8 L, MCHC 32.0, RDW 18.7 H, Plt Count 187, MPV 8.2, Neut % (Auto) 72.7, Lymph % (Auto) 21.6, [place] % (Auto) 3.7, Eos % (Auto) 1.5, Baso % (Auto) 0.4, Neut # (Auto) 6.2, Lymph # (Auto) 1.9, [place] # (Auto) 0.3, Eos # (Auto) 0.1, Baso # (Auto) 0.0 05/25/22 05:45: Magnesium 1.8 05/25/22 05:45: Sodium 132 L, Potassium 3.3 L, Chloride 106, Carbon Dioxide 17 L, Anion Gap 12.3, BUN 14, Creatinine 1.50 H, Estimated Creat Clear 43, Estimated GFR 44 L, Est GFR ( Amer) 53 L, Glucose 94, Calcium 7.7 L, Total Bilirubin 1.0, AST 32 D, ALT 21, Alkaline Phosphatase 325 H, Total Protein 5.8 L, Albumin 2.6 L, Globulin 3.2, Albumin/Globulin Ratio 0.8 L 05/25/22 05:45: D-Dimer 3.86 H 05/25/22 05:45: Iron 12 L, TIBC 267, Iron Saturation 4.31482 L 05/25/22 05:45: C-Reactive Protein 208.2 H, Procalcitonin 7.57 H I & O for Labs for Last 24 Hours: Intake & Output 05/22/22 05/23/22 05/24/22 05/25/22 23:59 23:59 23:59 23:59 Intake Total 1320 / 1420 760 / 1240 600 / 600 Output Total 550 / 550 0 / 0 Balance 770 / 870 760 / 1240 599 / 599 Weight 42.184 kg 44.027 kg 44.962 kg 45.586 kg Microbiology Reports for the Last 24 Hours: Microbiology 05/23/22 06:30 Urine,Clean Catch Urine Culture - Final NO GROWTH AFTER 48 HOURS 05/23/22 01:30 Blood Blood Culture - Preliminary Escherichia coli 05/23/22 01:30 Blood Blood Culture - Preliminary NO GROWTH AFTER 48 HOURS Constitutional: Present mild distress and average body habitus Head: Present atraumatic and normocephalic ENT: Present normal exam Neck: Present normal inspection Respiratory: Present crackles (faint bibasilar posterior lung iyer with deep inspiration) and normal respiratory effort; Absent accessory muscle use, rhonchi or wheezes Cardiac: Present Regular Rhythm and Tachycardia GI: Present soft, tenderness (non focal, no guarding or re
--- NOTE | 2022-05-25 15:54 | PC.NURSE ---
image disc was given to mother to go with patient for appointment with Dr.Charles Clark 06/12
--- NOTE | 2022-05-25 17:39 | PC.NURSE ---
No pain reported by patient, IV lasix given. VS stable and patient remained on room air.
[2022-05-26] VITALS: BP 124/82; PULSE 118; RESP 17; TEMP 37; O2SAT 99
[2022-05-26 00:11] VITALS: PULSE 117; PULSE 119
[2022-05-26 04:00] VITALS: BP 116/72; PULSE 102; RESP 16; TEMP 37.3; O2SAT 97; BMI 21.1
[2022-05-26 07:04] LABS: Basophils % 0.6 % (0.1-2.0); Eosinophils # 0.1 K/mm3 (0.0-0.4); Eosinophils % 0.9 % (0.1-12.0); Hematocrit 29.8 % (37.0-47.0); Hemoglobin 9.9 g/dL (12.2-16.2); Lymphocytes % 28.9 % (10-50); Mean Corpuscular HGB Conc 33.2 g/dL (31.8-35.4); Mean Corpuscular Hemoglobin 25.3 pg (27.0-31.2); Mean Corpuscular Volume 76.1 fl (81-99); Mean Platelet Volume 8.2 fl (7.4-10.4); Monocytes # 0.3 K/mm3 (0.1-1.0); Monocytes % 3.7 % (1.7-9.3); Neutrophils # 4.6 K/mm3 (1.8-7.8); Neutrophils % 65.8 % (37.0-80.0); Platelet Count 246 K/mm3 (142-424); Red Blood Count 3.92 M/mm3 (4.20-5.40); Red Cell Distribution Width 18.4 % (11.5-17.5); White Blood Count 6.9 K/mm3 (4.8-10.8)
[2022-05-26 07:20] LABS: Chloride 102 mmol/L (98-107)
[2022-05-26 07:21] LABS: Potassium 3.7 mmoL/L (3.5-5.1); Sodium 133 mmol/L (136-145)
[2022-05-26 07:23] LABS: Alanine Aminotransferase 26 U/L (12-78); Alkaline Phosphatase 417 U/L (38-126); Aspartate Amino Transferase 37 U/L (14-36); Bilirubin,Total 0.7 mg/dl (0.2-1.3); Blood Urea Nitrogen 11 mg/dl (7-17); Creatinine Clearance Estimated 50 mL/min (50-200); Estimated Glomerular Filt Rate 57 ml/min (>60); GFR (African American) 69 ML/MIN (>60)
[2022-05-26 07:24] LABS: Albumin/Globulin Ratio 0.9 (1.1-1.8); Anion Gap 11.7 mEq/L (5-15); Calcium 8.2 mg/dl (8.4-10.2); Carbon Dioxide 23 mmol/L (22.0-30.0); Globulin 3.5 g/dL (1.3-3.2); Glucose 97 mg/dl (74-100); Total Protein,Serum 6.5 g/dl (6.3-8.2)
[2022-05-26 07:30] LABS: C-Reactive Protein 119.1 mg/L (0-4)
[2022-05-26 07:47] VITALS: BP 115/72; PULSE 102; RESP 16; TEMP 37.3; O2SAT 97
--- NOTE | 2022-05-26 07:48 | PC.NURSE ---
tech note; notified nurse of high heart rate for 0800 vital signs.
[2022-05-26 08:00] VITALS: O2SAT 98
[2022-05-26 08:16] VITALS: PULSE 111; PULSE 120
--- NOTE | 2022-05-26 08:56 | EXP.DC.SUM ---
General Admission date:: 05/23/22 Discharge date: 05/26/22 HPI HPI HPI: Ms. Colin is a 22-year-old female with no significant past medical history who presents to [facility] with mother due to a 3-day history of back pain associated with chills, nausea and the inability to tolerate oral intake. Mother reports that she was seen by her PCP and diagnosed with Pyelonephritis by CT scan 2-days prior to presentation. At that time she was given a dose of Rocephin and given Cefdinir orally. Despite these interventions the mother reports that the patient had worsening back pain and the inability to tolerate oral intake so she brought her into the ER for further evaluation. In the ER, CT of the abdomen and pelvis showed persistent enlargement of the right kidney with trace perinephretic stranding with no hydronephrosis. On CMP Na was 129, K was 2.8, and creatinine was 2.20. Urine HCG was negative. On presentation the patient had a HR of 138, RR of 21. The patient will be admitted with initial impression: Sepsis, Pyelonephritis, Hypokalemia, SEAN and Hyponatremia. She had cultures drawn in the ER and received a Fluid bolus and iv antibiotics. The plan of care was discussed with the patient and mother at bedside. Both verbalized understanding and agreement with the plan of care. Hospital Course Hospital Course Hospital Course: 22-year-old female with no significant past medical history presented with sepsis secondary to pyelonephritis.? Blood cultures returned positive for E. coli.? Still awaiting sensitivity.? Antibiotics broadened to meropenem and vancomycin overnight.? Requiring oxygen for new onset hypoxia after IV fluid resuscitation.? Chest imaging consistent with pulmonary edema/atelectasis. Improved over the past 24 hours from a breathing standpoint, stable on room air. No hypoxia during 6-minute walk. Transition to oral antibiotics to complete empiric 14-day course for E. coli bacteremia and pyelonephritis. Problems addressed as follows: -Sepsis (POA) -Pyelonephritis -E. coli bacteremia Sepsis Criteria met on admission:? HR 138, RR 21, Source CT imaging with Pyelonephritis on the right. Started on broad-spectrum antibiotics with cefepime. Broadened briefly when patient had recurrent fevers to meropenem. Blood culture turned out positive for E. coli, urine cultures remained negative. E. coli found to be pansensitive. Decision made to transition to levofloxacin for ease of transition to oral dosing. Patient fever free for 24 hours prior to discharge home. Will complete 14-day course of antibiotics given severity of initial presentation and concern for abscess formation on repeat CT abdomen of kidneys with contrast. Patient will need follow-up with urology after discharge. Scheduled to follow-up with Dr. Clark at [place]. Pain improved over the past 24 hours. No significant pain medication requirement 24 hours before discharge with no opiates in that timeframe. Inflammatory markers improving during hospitalization. Procalcitonin initially 19, improved to 7.5 after 3 days of antibiotics. CRP improved from 250 on admission to 119 on day of discharge. - Hypoxia new oxygen requirement after IV fluids.? Chest imaging concerning for some edema, increased vascular congestion. Held on diuresis initially given patient's SEAN. CT of chest obtained that was negative for PE. Did show lower lobe atelectasis with small effusions. Pulmonology consulted, appreciate their assistance in care. Recommended nebulizers and one-time dose of diuretic. Patient responded well. Weaned off oxygen and does not qualify for home O2 as she has maintain saturations in the mid to high 90s on room air. Continue incentive spirometry at discharge. Plan to follow-up with pulmonology in a week with repeat chest imaging prior to visit. - Hyponatremia: Gradually improving. 133 on day of discharge. Repeat labs in a week to monitor kidney func
--- NOTE | 2022-05-26 09:58 | EXP.PULM.CON ---
History of Present Illness Consult date: 05/25/22 Requesting physician: Juan Driver History of present illness: Ms. Dixie mosquera a 22 y/O F presented to the hospital and being treated for complicated UTI/Pyelonephritis/Renal Abscess noted to have worsening resp distress during her hospital course and had a significant desaturation event overnight and pulmonary was consulted for further evaluation. [facility] Disclaimer: The information contained in this section may have been updated after the patient was seen, as this information can be updated by other users. Medical History (Updated 05/26/22 @ 10:04 by Yvonne Bansal MD) Allergic rhinitis Anxiety Attention deficit hyperactivity disorder (ADHD) Pain, abdominal, RLQ Pleural effusion Right flank pain Family History (Updated 05/23/22 @ 02:34 by Jess Hernández, RN) Other No significant family history Social History (Updated 05/23/22 @ 02:35 by Jess Hernández, ULICES) Smoking Status: Never smoker alcohol intake: never substance use type: denies use current occupational status: student and other Travel in the last 8 weeks: None household members: family housing: house Review of Systems Constitutional Constitutional: Denies anorexia and Denies body ache(s) Eyes Eyes: Denies eye discharge, Denies dry eyes, Denies irritation and Denies itchy eyes ENT Ears, Nose, Mouth, and Throat: Denies epistaxis, Denies facial pain, Denies lip swelling and Denies throat swelling *Cardiovascular Cardiovascular: Reports dyspnea and Reports dyspnea on exertion *Respiratory Respiratory: Denies change in phlegm color, Denies chest congestion, Reports cough, Reports dyspnea, Reports dyspnea on exertion, Denies excessive phlegm production and Denies wheezing *Gastrointestinal Gastrointestinal: Reports abdominal pain, Denies belching and Denies cramping *Musculoskeletal Musculoskeletal: Denies back pain, Reports myalgias and Reports other (No small joint swelling or Pain) *Neurologic Neurologic: Reports system reviewed and no additional complaints, except as documented Psychiatric Psychiatric: Denies homicidal ideation and Denies suicidal ideation Endocrine Endocrine: Denies heat intolerance Hematologic/Lymphatic Hematologic/Lymphatic: Denies easy bleeding and Denies lymphadenopathy Allergic/Immunologic Allergic/Immunologic: Denies itchy eyes, Denies lip swelling, Denies throat swelling and Denies wheezing Pulmonology Exam Inpatient Vital signs and Labs for Last 24 Hours: Temp Pulse Resp BP Pulse Ox 99.2 F 111 H 16 115/72 97 05/26/22 07:47 05/26/22 08:16 05/26/22 07:47 05/26/22 07:47 05/26/22 07:47 Laboratory Results - last 24 hr 05/26/22 06:45: Sodium 133 L, Potassium 3.7, Chloride 102, Carbon Dioxide 23, Anion Gap 11.7, BUN 11, Creatinine 1.20 H, Estimated Creat Clear 50, Estimated GFR 57 L, Est GFR ( Amer) 69 D, Glucose 97, Calcium 8.2 L, Total Bilirubin 0.7, AST 37 H, ALT 26, Alkaline Phosphatase 417 H, C-Reactive Protein 119.1 H, Total Protein 6.5, Albumin 3.0 L D, Globulin 3.5 H, Albumin/Globulin Ratio 0.9 L 05/26/22 06:45: WBC 6.9, RBC 3.92 L, Hgb 9.9 L, Hct 29.8 L, MCV 76.1 L, MCH 25.3 L, MCHC 33.2, RDW 18.4 H, Plt Count 246 D, MPV 8.2, Neut % (Auto) 65.8, Lymph % (Auto) 28.9, [place] % (Auto) 3.7, Eos % (Auto) 0.9, Baso % (Auto) 0.6, Neut # (Auto) 4.6, Lymph # (Auto) 2.0, [place] # (Auto) 0.3, Eos # (Auto) 0.1, Baso # (Auto) 0.0 I & O for Labs for Last 24 Hours: Intake & Output 05/23/22 05/24/22 05/25/22 05/26/22 23:59 23:59 23:59 23:59 Intake Total 1320 / 1420 760 / 1240 720 / 720 Output Total 550 / 550 0 / 0 302 / 302 Balance 770 / 870 760 / 1240 418 / 418 -1 / -1 Weight 97 lb 1.007 oz 99 lb 2 oz 100 lb 8 oz 93 lb 12.8 oz Microbiology Reports for the Last 24 Hours: Microbiology 05/24/22 07:00 Blood Blood Culture - Preliminary NO GROWTH AFTER 48 HOURS 05/24/22 06:54 Blood Blood Culture - Pre
--- NOTE | 2022-05-28 15:36 | CARE MANAGER ---
Called and spoke with patient's mother, as patient did not answer her phone. Mother stated that patient is improving everyday. She is aware of f/u appointments. No complaints or concerns at time of call.
== END 2022-05-26 12:00 | disposition home or self-care (01) | DRG 872 ==
LOC: ER 05-23 01:42 → 2ND 05-23 02:56
PROVIDERS: Nurse Practitioner Family; Admitting Provider Internal Medicine Adolescent Medicine; Emergency Provider Emergency Medicine; PCP Physician Assistant; Visit Provider Internal Medicine Adolescent Medicine
DX: A41.51 Sepsis due to Escherichia coli [E. coli] (principal); E87.1 Hypo-osmolality and hyponatremia; N17.9 Acute kidney failure, unspecified; J81.1 Chronic pulmonary edema; N30.90 Cystitis, unspecified without hematuria; E87.6 Hypokalemia; J45.20 Mild intermittent asthma, uncomplicated; D50.9 Iron deficiency anemia, unspecified
CPT/HCPCS: 36415; 71045; 71046; 71275; 74160; 74176; 80048; 80053; 81001; 81025; 82803; 83540; 83550; 83605; 83735; 84145; 85007; 85025; 85378; 85651; 86140; 87040; 87070; 87077; 87086; 87186; 87205; 94640; 99285; C9803; J0131; J0692; J1956; J2185; J2405; J3370; Q9967; U0003; U0005

== ENCOUNTER → 2022-06-01 09:00 | Outpatient (CLI) | payer BC, SELFPAY ==
--- NOTE | 2022-06-01 09:06 | XR_ITS ---
FINAL REPORT CLINICAL HISTORY: Pneumonia follow up COMPARISON: 05/25/2022 FINDINGS: TWO-VIEW CHEST The heart size is normal. The mediastinum is normal. There is improved aeration in the lung bases as compared to prior. There is presumed granuloma in the right mid lung. There is no pneumothorax. IMPRESSION: Improved aeration in the lung bases. Reviewed, Interpreted and Dictated by David Briggs III, MD Transcribed by Fallon Galvan Authenticated and [facility]
[2022-06-01 10:50] LABS: Chloride 104 mmol/L (98-107); Potassium 4.5 mmoL/L (3.5-5.1); Sodium 140 mmol/L (136-145)
[2022-06-01 10:53] LABS: Anion Gap 15.5 mEq/L (5-15); Blood Urea Nitrogen 16 mg/dl (7-17); Calcium 9.2 mg/dl (8.4-10.2); Carbon Dioxide 25 mmol/L (22.0-30.0); Estimated Glomerular Filt Rate 79 ml/min (>60); GFR (African American) 96 ML/MIN (>60); Glucose 72 mg/dl (74-100)
== END ==
PROVIDERS: Internal Medicine Adolescent Medicine; PCP Physician Assistant; Visit Provider Internal Medicine Pulmonary Disease
DX: J98.11 Atelectasis (principal)
CPT/HCPCS: 36415; 71046; 80048

== ENCOUNTER → 2023-02-18 23:29 | Outpatient (CLI) | payer BC, SELFPAY ==
[2023-02-18 20:48] LABS: Amphetamine/Metha Screen,Urine Positive ng/ml (<1000); Barbiturates Screen,Urine Negative ng/ml (<200)
[2023-02-18 20:49] LABS: Benzodiazepines Screen,Urine Negative ng/ml (<200)
[2023-02-18 20:50] LABS: Cannabinoid Screen,Urine Negative ng/ml (<50); Cocaine Screen,Urine Negative ng/ml (<300)
[2023-02-18 20:51] LABS: Methadone Screen,Urine Negative ng/ml (<300); Opiate Screen,Urine Negative ng/ml (<300)
[2023-02-18 20:52] LABS: Phencyclidine Screen,Urine Negative ng/ml (<25)
== END ==
PROVIDERS: PCP Physician Assistant; Visit Provider Physician Assistant
DX: F90.9 Attention-deficit hyperactivity disorder, unspecified type (principal); Z79.899 Other long term (current) drug therapy
CPT/HCPCS: 80305